=== PATIENT | male | born 1970 | race Caucasian/White ===

== ENCOUNTER 2017-12-11 20:07 | Emergency (ER) | payer OTHER ==
[2017-12-11 20:07] VITALS: BMI 27.1
[2017-12-11 20:58] VITALS: BP 151/77; PULSE 78; RESP 28; TEMP 98; O2SAT 98
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
== END 2017-12-11 22:27 | disposition home or self-care (01) ==
LOC: C.ER 20:07
DX: S00.83XA Contusion of other part of head, initial encounter (principal); Y04.0XXA Assault by unarmed brawl or fight, initial encounter; Y99.0 Civilian activity done for income or pay